=== PATIENT | female | born 1955 | race Caucasian/White ===

== ENCOUNTER 2016-12-05 16:08 | Emergency (ER) | payer OTHER ==
[2016-12-05 12:32] LABS: BASOPHILS 0.4 %; BASOPHILS ABSOLUTE 0.04 10/3/uL (0.0-0.16); EOSINOPHILS 1.2 %; EOSINOPHILS ABSOLUTE 0.11 10/3/uL (0.0-0.53); HEMATOCRIT 37.7 % (36.0-48.0); HEMOGLOBIN 12.7 g/dL (12.0-16.0); IMMATURE GRANULOCYTES 0.2 %; IMMATURE GRANULOCYTES ABSOLUTE 0.02 10/3/uL (0.0-0.11); LYMPHOCYTES 12.1 %; LYMPHOCYTES ABSOLUTE 1.11 10/3/uL (0.67-4.30); MANUAL DIFF NO %; MEAN CORPUS HGB CONC 33.7 g/dL (32.0-36.0); MEAN CORPUSCULAR HEMOGLOB 28.3 pg (26.0-34.0); MEAN CORPUSCULAR VOLUME 84.2 fL (80-100); MEAN PLATELET VOLUME 9.3 fL (9.2-13.0); MONOCYTES 3.4 %; MONOCYTES ABSOLUTE 0.31 10/3/uL (0.21-1.20); NEUTROPHILS 82.7 %; PLATELET COUNT 58 10/3/uL (150-400); RBC DISTRIBUTION WIDTH 13.7 % (12.0-16.0); RED CELL COUNT 4.48 10/6/uL (4.0-5.6); WHITE BLOOD CELLS 9.2 10/3/uL (4.5-10.5)
[2016-12-05 12:39] LABS: INTERNATIONAL NORMAL RATI 1.1 UNITS (-); PARTIAL THROMBO TIME 29.8 SEC (22.5-37.2); PROTIME (NOT ORD) 14.2 SEC (12.0-14.5)
[2016-12-05 12:50] LABS: CALCIUM, SERUM 9.4 MG/DL (8.5-10.4); CHEST PAIN PROFILE TAT 0 Hrs 22 Mins; CHLORIDE, SERUM 105 MMOL/L (96-112); CREATININE 0.72 MG/DL (0.55-1.02); GFR AFRICAN AMERICAN 103 ML/MIN (>=60); GFR NON AFRICAN AMERICAN 89 ML/MIN (>=60); POTASSIUM, SERUM 3.9 MMOL/L (3.5-5.3); SODIUM, SERUM 138 MMOL/L (135-148); TROPONIN I <0.02 NG/ML (<0.05)
[2016-12-05 12:52] LABS: BUN (BLOOD UREA NITROGEN) 10 MG/DL (6-23); CO2 (CARBON DIOXIDE) 24 MMOL/L (24-34); GLUCOSE, SERUM 124 MG/DL (60-99)
[2016-12-05 13:35] LABS: PLATELET ESTIMATE DEC (ADEQUATE)
[2016-12-05 13:36] LABS: RBC MORPHOLOGY NORM (NORMAL)
[~2016-12-05 16:08] MED LIST: CALTRA600D PO; CENTRUM PO; IBU-200200 MG PO; PERCOCET1 TA2 PO
[2016-12-06] MEDS ORDERED: B COMPLETE PO (15:44)
[2016-12-06] MEDS ORDERED: VITC500 PO (15:44)
[2016-12-06] MEDS ORDERED: FISH-EPA1000 MG PO (15:44)
== END 2016-12-05 17:03 | disposition home or self-care (01) ==
LOC: ER 16:08
PROVIDERS: Emergency Medicine
DX: R06.02 Shortness of breath (principal); I51.89 Other ill-defined heart diseases; Z85.038 Personal history of other malignant neoplasm of large intestine; Z88.5 Allergy status to narcotic agent; Z88.1 Allergy status to other antibiotic agents; Z79.899 Other long term (current) drug therapy
CPT/HCPCS: 71020; 80048; 83735; 84484; 85025; 85610; 85730; 93005; 99285

== ENCOUNTER 2016-12-06 14:53 | Inpatient (IN) | payer OTHER ==
--- NOTE | ~2016-12-06 | DS ---
Discharge Summary [facility] [address] [place]. [address] NAME: JESE ALEJO : 51 STATUS : DIS IN PAT#: [id number] AGE: 61 ADM/REG DATE : 12/06/16 MR#: [id number] REPORT SERV DATE: 12/10/16 DICTATED BY: CUATE IRWIN DATE: 12/09/16 REPORT STATUS : Draft TRANSCRIBED BY: MODL DATE: 12/09/16 ADMISSION DATE: 12/06/2016 DISCHARGE DATE: 12/09/2016 REASON FOR ADMISSION: Bilateral pulmonary emboli. A 61-year-old female with a history of colon cancer and Port-A-Cath who came in with progressive shortness of breath. DISCHARGE DIAGNOSES: 1. Bilateral pulmonary emboli with thrombus surrounding the Port-A-Cath extending down the superior vena cava into the right atrium. 2. History of colon cancer. 3. Probable pulmonary metastasis. HOSPITAL COURSE: The patient admitted for bilateral pulmonary emboli. 1. Bilateral pulmonary emboli. The patient was started on IV heparin drip. CT of the chest would show bilateral acute pulmonary emboli involving bilateral lower lobe and right upper lobe lobar pulmonary arteries and segmental arteries, also would show a 4.8 x 2.6 cm right atrial thrombus and thrombus extending into distending the SVC and surrounding Port-A-Cath catheter in the SVC. Thrombus also extended down into the lower right jugular vein and partial SVC obstruction and increased collateralization of flow through the mediastinum, worsening bilateral pulmonary metastases since June 2016. The patient also have an echocardiogram performed. She actually had one done outpatient which had showed a right atrial thrombus which led to her being instructed to come to the emergency room for admission. The echocardiogram would show a large mass in right atrium extending through the tricuspid valve consistent with thrombus. Normal left ventricular systolic function with estimated LVEF of 55% and mild right ventricular enlargement. The patient had consulted services from Vascular Surgery, Dr. English; Cardiovascular Thoracic Surgery; Cardiology, Dr. Salomon, and Pulmonary, Arik Rice. After much discussion amongst the various specialties, Dr. Salomon felt strongly that the patient needed a mechanical removal of the clot burden and called around to different facilities ultimately finding an accepting facility at [facility] where they will do a mechanical clot removal. It is important to note that it appears that the patient has metastasis of her cancer to bilateral lung bases, but that will not be addressed at this time as she needs urgent intervention for her multiple thrombi. Risks were discussed with the patient associated with transferring to the tertiary facility for treatment. She understands these risks and agrees for transfer to [facility]. DISCHARGE CONDITION: Stable. The patient will transfer to the [facility] via [employer] airplane. DISCHARGE MEDICATIONS: 1. Heparin drip. 2. Multivitamin. Discharge Summary [address] [address] NAME: JESE ALEJO : 51 STATUS : DIS IN PAT#: [id number] AGE: 61 ADM/REG DATE : 12/06/16 MR#: [id number] REPORT SERV DATE: 12/10/16 DICTATED BY: CUATE IRWIN DATE: 12/09/16 REPORT STATUS : Draft TRANSCRIBED BY: CLIFFORD DATE: 12/09/16 3. Caltrate 600 + D daily. 4. Vitamin C 1000 mg daily. 5. Fish oil 1000 mg p.o. daily. 6. Vitamin B complex one tablet daily. DISCHARGE PLAN: The patient is discharge to [facility] for urgent mechanical removal of clot. TDR/CLIFFORD Cuate Irwin APN / [id number] CC: Beck Bell MD Sachin V Phade, M.D. Mark Thel, M.D. Garrick B Spoon, PA-C Sylvia Krueger, M.D.
--- NOTE | ~2016-12-06 | CN ---
Consultation Report [facility] [address] [place]. [address] NAME: LUIZA ALEJO : 51 STATUS : DIS IN PAT#: [id number] AGE: 61 ADM/REG DATE : 12/06/16 MR#: [id number] REPORT SERV DATE: 12/09/16 DICTATED BY: RASHEL RAMON DATE: 12/09/16 REPORT STATUS : Draft TRANSCRIBED BY: CLIFFORD DATE: 12/09/16 DATE OF CONSULTATION: 12/09/2016 REQUESTING PHYSICIAN: Rahat Salomon M.D. CHIEF COMPLAINT: Dyspnea in a patient with bilateral pulmonary embolism. HISTORY OF PRESENT ILLNESS: Ms Luiza Alejo is a very pleasant 61-year-old white female with a past medical history significant for colon cancer, previously treated with resection and adjuvant chemotherapy, who presents to [facility] Emergency Room with complaints of worsening shortness of breath over the last one to two weeks. It should be noted that Ms Alejo has not been hospitalized recently and is usually in fairly good health given her comorbidity. Ms Alejo is not currently followed by a rv service technician. She does not usually require a supplemental oxygen. She is on no nebulized medications. She describes herself as a never smoker. Her does state that she has bouts of snoring in the evening. She describes her exercise tolerance previous to this recent illness as being excellent, being able to walk over 100 yards before experiencing any shortness of breath. Mrs Alejo was diagnosed with colon cancer approximately two years ago. She did undergo resection and had adjuvant chemotherapy under the care of Dr. Bee. She had subsequent scans, which raised the question of possible recurrence at the anastomosis site. She was seen by Dr. Chance. This did not demonstrate residual disease by her report. She has had scans in the past that demonstrated pulmonary nodules. More recently, she began to experience worsening shortness of breath. She was treated by her primary care physician for sinus and bronchitis-like symptoms. However, she had shortness of breath that persisted. More recently, soon after having her chemo port flush she, began to experience further worsening of this symptom that prompted her presentation to [facility]'s Emergency Room. Upon arrival, she was found to have systolic blood pressure of 154. She was afebrile. Pulse was 112. Room air sat was 90%. She eventually underwent a CT of the chest, which demonstrated bilateral acute pulmonary emboli, as well as a large right atrial thrombus extending into the SVC. Worsening bilateral pulmonary metastasis were appreciated as well. For the aforementioned reasons, she has been referred to the Pulmonary Service for further assessment. Currently, the patient is on 2 L of supplemental oxygen. She is very dyspneic with any exertion. She denies any hemoptysis or pleuritic pain. She has no cough. She is not producing any purulent sputum. She denies any wheezing in her chest. She denies recurrent pneumonias. She denies previous history of blood clots. The patient currently denies any murmurs, angina, or palpitations. She denies any paroxysmal nocturnal dyspnea or edema. Consultation Report [facility] [id number] [place]. [address] NAME: LUIZA ALEJO : 51 STATUS : DIS IN PAT#: [id number] AGE: 61 ADM/REG DATE : 12/06/16 MR#: [id number] REPORT SERV DATE: 12/09/16 DICTATED BY: RASHEL RAMON DATE: 12/09/16 REPORT STATUS : Draft TRANSCRIBED BY: CLIFFORD DATE: 12/09/16 PAST MEDICAL HISTORY: Colon cancer. PAST SURGICAL HISTORY: Colon resection x2. FAMILY HISTORY: The patient denies a family history of lung disease. She states that there is a history of "multiple cancers." SOCIAL HISTORY: The patient is with her currently at bedside. They have two children who are in good health. She previously worked in an office environment and denies any known exposures to dust, silica, or asbestos. TOBACCO/ALCOHOL: As previously mentioned, the patient describes herself as a never smoker. She denies any recent alcohol or illicit drug use. MEDICATIONS: 1. Vitamin C 500 mg. 2. B complex and folic acid. 3. Calcium 600 mg. 4. Multivitamin. 5. Bingen-3. ALLERGIES: THE PATIENT HAS KNOWN ALLERGY TO CODEINE AND TETRACYCLINE. REVIEW OF SYSTEMS: A complete review of systems was performed with pertinent positives and negatives contained within the body of the HPI. PHYSICAL EXAMINATION: VITAL SIGNS: Blood pressure is 98/61, heart rate is 101, T-max is 98.5, respiratory rate is 16, SpO2 is 97% on 2 L. GENERAL: The patient is a pleasant, well-nourished/well-developed female who is not currently exhibiting any signs of acute distress. SKIN: Skin with appropriate texture and turgor. No rashes, lesions, or ulcers. Nails are clear without cyanosis or clubbing. HEENT: Head: Skull is normocephalic/atraumatic. Facies symmetric. No masses or lesions. EYES: Sclera anicteric, conjunctiva pink without exudates. Extra ocular movements intact. Pupils are equal, round, reactive to light. EARS: Auricles and tragus without pain to palpation. Hearing is grossly intact. NOSE: Bilateral nasal patency. Sinuses without tenderness upon palpation. THROAT: Dentition. Lips, oral mucosa, tongue, palate, and pharynx pink and moist without lesions. Uvula rises equally on phonation. Tongue midline without deviation. NECK: Neck supple. Trachea midline. No cervical lymphadenopathy appreciated. THORAX/LUNGS: Port appreciated in left upper thorax. CARDIOVASCULAR: Regular rate and rhythm. No murmurs, rubs, or gallops. Anterior chest without thrills, heaves, or lifts. Consultation Report [address] [place]. [address] NAME: LUIZA ALEJO : 51 STATUS : DIS IN PAT#: [id number] AGE: 61 ADM/REG DATE : 12/06/16 MR#: [id number] REPORT SERV DATE: 12/09/16 DICTATED BY: RASHEL RAMON DATE: 12/09/16 REPORT STATUS : Draft TRANSCRIBED BY: CLIFFORD DATE: 12/09/16 ABDOMEN: Soft. Non-distended, non-tender. Active bowel sounds in all four quadrants. No hepatosplenomegaly noted. PERIPHERAL VASCULAR: No edema. No varicosities, stasis changes, open sores, ulcerations, or phlebitis. 2+ pulses in radial and dorsalis pedis. MUSCULOSKELETAL: Full AROM and PROM in all joints. No evidence of erythema, deformity, or crepitus. NEUROLOGIC: CN 2 through 12 grossly intact. Good muscle bulk and tone bilaterally. Strength 5/5 throughout. PSYCHIATRIC: Patient demonstrates good judgment and insight. Pt is A&O x 3. ACCESSORY DATA: Reveals a white blood cell count of 10,900, hemoglobin and hematocrit 11.2 and 33.8, and platelets are 62. There is an echocardiogram pending. IMPRESSION: 1. Bilateral pulmonary embolism. 2. Right atrial thrombosis with extension into the superior vena cava. 3. Likely bilateral pulmonary metastatic disease. PLAN: 1. The patient's hypercoagulable state is likely secondary to her metastatic disease and further complicated by an indwelling catheter. She is currently on a heparin drip. We did discuss the possibility of systemic tPA, as well as a catheter-directed approach. Given her significant clot burden, we agree with the plan for transferring her for a mechanical intervention to remove her substantial clot burden. The patient is aware of the inherent risks associated with transferring to a tertiary care facility and is willing to proceed at this time. 2. In regard to the patient's likely metastatic disease, we will not pursue biopsy at this time. The aforementioned impression and plan has been discussed with Dr. Wilson, who will follow further recommendations. We thank you for this consult and look forward to participating in the care of Luiza Alejo. LENO/CLIFFORD Rashel Ramon PA-C / [id number] CC: Consultation Report [address] [place]. [address] NAME: LUIZA ALEJO : 51 STATUS : DIS IN PAT#: [id number] AGE: 61 ADM/REG DATE : 12/06/16 MR#: [id number] REPORT SERV DATE: 12/09/16 DICTATED BY: RASHEL RAMON DATE: 12/09/16 REPORT STATUS : Draft TRANSCRIBED BY: JOSÉ MIGUELL DATE: 12/09/16 Peter Doll M.D. Jillian Hill MD
--- NOTE | ~2016-12-06 | PRECARD ---
H&P [facility] [address]. [address] NAME: LUIZA ALEJO : 51 STATUS : ADM IN [facility]#: [id number] AGE: 61 ADM/REG DATE : 12/06/16 MR#: [id number] REPORT SERV DATE: 12/08/16 DICTATED BY: RAMILA SALOMON DATE: 12/08/16 REPORT STATUS : Draft TRANSCRIBED BY: CLIFFORD DATE: 12/08/16 DATE OF ADMISSION: 12/06/2016 HISTORY OF PRESENT ILLNESS: Ms. Luiza Alejo is a 61-year-old woman referred by the hospitalist and Dr. Seth because of thrombus noted on a central venous catheter. The patient has a history of colon cancer that was resected, it apparently had spread to the lymph nodes, but not to the liver. She had a subsequent mass in the colon, she had repeat surgery by Dr. Chance here at [facility], she reports that second colon operation did not demonstrate malignancy. She developed shortness of breath. A chest CT demonstrated bilateral acute pulmonary emboli involving the bilateral lower lobes, with right lower lobe pulmonary artery and segmental arteries. She also had a 4.8 x 2.6 cm right atrial low density mass, likely thrombus, suspected thrombus surrounding the Port-A-Cath in the SVC. The chest CT suggested continued bilateral pulmonary metastases. However, she did have a recent PET-CT that did not demonstrate avidity. She reportedly also had a brain MRI that did not show metastases. She has been on heparin since admission. Her dyspnea has improved, she has no chest discomfort. PAST MEDICAL HISTORY: Colon cancer, two different operations. SOCIAL HISTORY: No alcohol or tobacco. She is , lives in [place], no longer working. MEDICINES: Vitamin C, vitamin D, multivitamin, heparin IV. REVIEW OF SYSTEMS: Complete review of systems obtained, pertinent negative and unremarkable except as noted above and below. All systems addressed. PHYSICAL EXAMINATION: VITAL SIGNS: Pressure about 115/60, heart rate about 60. GENERAL: Comfortable, in no acute distress. HEENT: No xanthelasma; lips without cyanosis LUNGS: Clear to auscultation, no wheezes, rales or rhonchi; good breath sounds. COR: No JVD or hepatojugular reflux, no murmurs, rubs or gallops, impulse mid clavicular line without carotid or abdominal bruits; normal S1 and S2. ABDOMEN: Bowel sounds positive, normal activity, without tenderness, masses or hepatosplenomegaly. EXTREMITIES: No edema, cyanosis. SKIN: Normal turgor. H&P [address] [place]. [address] NAME: LUIZA ALEJO : 51 STATUS : ADM IN PAT#: [id number] AGE: 61 ADM/REG DATE : 12/06/16 MR#: [id number] REPORT SERV DATE: 12/08/16 DICTATED BY: RAMILA SALOMON DATE: 12/08/16 REPORT STATUS : Draft TRANSCRIBED BY: CLIFFORD DATE: 12/08/16 Ms: Normal muscle strength, without kyphosis/scoliosis. NEURO/PSYCH: Alert and oriented times 4, no apparent anxiety or depression. DATA: BUN is 6, creatinine 0.6, troponin less than 0.02. Platelets 60,000. EKG sinus tachycardia. ASSESSMENT: Ms. Alejo is a 61-year-old woman with history of colon cancer. She has a Port-A-Cath, which has been in there for a few years. Her chest CT demonstrates clot on this Port-A-Cath, which is extending into her right atrium. She also has bilateral acute pulmonary emboli. She is on heparin IV. She had a platelet count of 60,000. I would continue with the current medical regimen. Thoracic Surgery and Vascular Surgery have already been consulted. I will look into the possibility of mechanical extraction of this thrombus via percutaneous approach. YUAN/CLIFFORD Ramila Salomon M.D. / [id number] CC: Beck Bell MD
--- NOTE | ~2016-12-06 | CN ---
Consultation Report [facility] [address] [place]. [address] NAME: JESE ALEJO : 51 STATUS : ADM IN PAT#: [id number] AGE: 61 ADM/REG DATE : 12/06/16 MR#: [id number] REPORT SERV DATE: 12/07/16 DICTATED BY: TERELL ENGLISH DATE: 12/07/16 REPORT STATUS : Draft TRANSCRIBED BY: MODAlissa DATE: 12/07/16 CONSULT NOTE DATE OF CONSULTATION: 12/06/2016 REASON FOR CONSULTATION: Evaluation for SVC thrombus as well as pulmonary emboli. BRIEF HISTORY: The patient is a 61-year-old female with a past medical history significant for colon cancer that necessitated resection by Dr. Bragg in [place]. She recently had a revision of her cancer surgery by Dr. Chance. She has had a [id number]-week history of shortness of breath. She went to see Dr. Jagdeep Hill about this. Initially, it was thought that she may have bronchitis. When her symptoms persisted, she had a cardiac workup, which included an echocardiogram. The echocardiogram demonstrated thrombus with her heart, so she was sent to the hospital for further evaluation and treatment. She ultimately was evaluated in the emergency department. She had a CT scan ordered as an outpatient. The CT scan showed a pulmonary embolus, so now she is being admitted for anticoagulation. Additionally, she was noted to have an SVC thrombus that extended into the right atrium. I was consulted for possible surgical percutaneous thrombectomy. The patient denies persistent malignancy but there is note that she has had an elevated CEA. She has reportedly had a PET-CT scan performed. This is not available to me. The patient states that she has had some chronic lung masses that do not light up on PET-CT. She has had a MRI of her brain that was reportedly unremarkable. The patient complains of facial swelling that she says has actually decreased. Her shortness of breath has worsened. She is unable to walk or perform many activities. PAST MEDICAL HISTORY: Colon cancer. SURGICAL HISTORY: Includes 2 colon cancer surgeries. SOCIAL HISTORY: She is . She lives in [place] but grew up in [place]. She has no history of tobacco, alcohol, or drug use. FAMILY HISTORY: Significant for cancers. Medications and allergies are documented on the chart and were reviewed. REVIEW OF SYSTEMS: A complete review of systems was performed and is negative with the exception of the aforementioned findings. PHYSICAL EXAMINATION: VITAL SIGNS: Documented on the chart and were reviewed. GENERAL: The patient is awake, alert, and oriented, in no apparent distress. HEAD AND NECK: Benign without any carotid bruits. Consultation Report [facility] [address] [address] NAME: JESE ALEJO : 51 STATUS : ADM IN PAT#: [id number] AGE: 61 ADM/REG DATE : 12/06/16 MR#: [id number] REPORT SERV DATE: 12/07/16 DICTATED BY: TERELL ENGLISH DATE: 12/07/16 REPORT STATUS : Draft TRANSCRIBED BY: CLIFFORD DATE: 12/07/16 HEART: Regular rate and rhythm. LUNGS: Clear but she has slightly labored breathing. She is on 3 L of oxygen. ABDOMEN: Soft, nontender, nondistended, with a nonaneurysmal aorta. EXTREMITIES: She has a normal compliment of upper extremity pulses without any significant edema or ischemic ulcerations. She has palpable femoral, popliteal, and pedal pulses. She has no significant edema or ischemic ulcerations. NEUROLOGICAL: Grossly nonfocal. MUSCULOSKELETAL: Otherwise benign. LABORATORY DATA: Her laboratory investigations are fairly unremarkable. Her CT scan was reviewed. She has had a fairly sizable bilateral pulmonary emboli. She also has thrombus that extends from her innominate veins into her SVC. It in fact extends into the right atrium. There is a Port-A-Cath in place that looks like it is in her left subclavian vein. ASSESSMENT AND PLAN: It looks like this lady has had pulmonary emboli and has a significant DVT. I talked to her about the risks, benefits, and alternatives of anticoagulation, IV thrombolytics, catheter-directed thrombolysis, and percutaneous thrombectomy. It is not clear to me what the right answer is for this lady, as she carries a significant PE risk regardless. This could be a significant PE. She is going to think about her options. After our discussion, she later had a discussion with Dr. Khan. We talked about our options and called Dr. Kamara and asked that he obtain a CT surgery evaluation. For right now, she is going to continue the anticoagulation alone. [employer]/MODL Terell English M.D. / [id number] CC: MD JAGDEEP Chand
--- NOTE | ~2016-12-06 | HP ---
History And Physical [place] [id number] [facility] [place]. [address] NAME: JESE ALEJO : 51 STATUS : ADM [facility]#: [id number] AGE: 61 ADM/REG DATE : 12/06/16 MR#: [id number] REPORT SERV DATE: 12/06/16 DICTATED BY: PORFIRIO MEJIA DATE: 12/06/16 REPORT STATUS : Draft TRANSCRIBED BY: MODL DATE: 12/06/16 DATE OF ADMISSION: 12/06/2016 REASON FOR ADMISSION: Pulmonary emboli bilaterally. HISTORY: This is a 61-year-old white female with extensive history of colon cancer. She has had colonoscopies done since she was age 43 in transverse colon, developed obstructing mass back in 2013, underwent resection by Dr. Chance. She has had a persistently elevated CEA. She had positive nodes and underwent chemotherapy from Dr. Norma Bee in [place]. She has had no evidence of recurrence. There was a CT scan of the abdomen, did show possible recurrence at the anastomosis site, though exploratory laparotomy by Dr. Chance in 2015 revealed no evidence of standing tumor. She has a PET scan done about two months ago, nothing was exposed that was FDG avid; however, she does have bilateral lower lobe pulmonary nodules that have not changed in size over an observable period of time. Dr. Norma Bee has been observing over time. She came to the emergency room last night with an echocardiogram showing an abnormality that was unable to be assessed completely. She was sent home and came back today with increasing weakness and shortness of breath. Chest x-ray done last night showed bilateral pulmonary nodules, possibly metastases, but have been present on the CT images recently from PET CT from 06/24/2016. Her troponin was less than 0.02. She was having some chest discomfort, shortness of breath, and dyspnea on exertion, but this has been going on for the last two weeks. PAST MEDICAL HISTORY: She had surgery, 10/20/2015, by Dr. Chance. He lysed multiple adhesions and then found no evidence of recurrence, though she had elevated CEA and a T3 N2 M0 mucinous adenocarcinoma. Pathology report was not present at the time of dictation of discharge summary. She had remote history of an ovarian cyst, had a breast biopsy in the past, although no other cancer. SOCIAL HISTORY: She is . Lives with her . She does not smoke cigarettes or take any alcohol. She grew up in [place], now lives in [place], [place], the last 30 years, as her was transferred there with [facility]. She takes an occasional mixed drink. She attends [employer] in [place], but has been a member of other denominations in the past. FAMILY HISTORY: Pancreatic cancer and diabetes run in the family. REVIEW OF SYSTEMS: She has had no nausea, vomiting, or diarrhea. No fever, chills, or night sweats. She has had no weight loss. No unilateral weakness. melena, hematemesis, fits, seizures, convulsions, nausea, vomiting, diarrhea, or constipation. No hemoptysis, hematuria, flank pain, headache, eye pain, double vision, nausea, vomiting, or diarrhea. The remainder of the review of systems is negative. History And Physical [address] [address] NAME: JESE ALEJO : 51 STATUS : ADM [facility]#: [id number] AGE: 61 ADM/REG DATE : 12/06/16 MR#: [id number] REPORT SERV DATE: 12/06/16 DICTATED BY: PORFIRIO MEJIA DATE: 12/06/16 REPORT STATUS : Draft TRANSCRIBED BY: CLIFFORD DATE: 12/06/16 She has had tonsillectomy and the ovarian cyst in the past as well. PHYSICAL EXAMINATION: GENERAL: White female, in no acute distress. VITAL SIGNS: Blood pressure was 140/70, heart rate 100, respiratory rate 18, afebrile. HEENT: EOMI. Sclerae clear. Conjunctivae pink. NECK: No bruit and without any JVD. CHEST: Clear to A and P. HEART: Hyperdynamic. Regular S1, S2 without murmur, gallop, or click. ABDOMEN: Soft, nontender. Bowel sounds positive. Protuberant. Surgical scars well healed. EXTREMITIES: Have no edema. Distal pulses are intact at the dorsalis pedis and posterior tibial. NEUROLOGIC: She withdraws to plantar stimulation. 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 Coordination intact. She has no tremor. She is symmetric and equal neurologically. LYMPHATICS: There is no adenopathy palpable in the cervical or axillary area. BREASTS: Grossly without mass. SKIN: Without rash, ecchymosis, or bruising. LABORATORY DATA: CTA of the chest was done that showed bilateral acute pulmonary emboli involving the bilateral lower lobes and right upper lobe pulmonary artery segmental arteries. There was a 4.8 x 2.6 cm right atrial thrombosis, and thrombus extended into the descending superior vena cava surrounded by Port-A-Cath in the superior vena cava. Thrombus also extended into the right jugular vein. There is at least partial superior vena cava occlusion with increased collateral flow through the mediastinum. She had worsened bilateral pulmonary metastasis since 06/2016. CT scan of the pelvis showed innumerable metastatic deposits in the lung bases, collapsed gallbladder, but no GI obstruction. The hemoglobin 12.9, hematocrit 38.3, platelets were 66,000, and white count was [address]. The INR was 1.2. Sodium 140, potassium 3.9, creatinine 0.66, BUN 9, glucose 108, magnesium 2.2. Troponin less than 0.02. The portable chest x-ray showed pulmonary nodules consistent with metastatic disease. ASSESSMENT: 1. Bilateral pulmonary embolism. 2. Left atrial thrombus. 3. History of colon cancer. 4. Possible pulmonary metastasis. 5. Multiple clots in and around the Port-A-Cath as well. EKG shows sinus tachycardia, left axis deviation, otherwise unremarkable EKG. MEDICATION LIST: The patient is on no medications with the exception of occasional Metamucil. ALLERGIES: CODEINE CAUSES VOMITING. History And Physical [address] [address] NAME: JESE ALEJO : 51 STATUS : ADM [facility]#: [id number] AGE: 61 ADM/REG DATE : 12/06/16 MR#: [id number] REPORT SERV DATE: 12/06/16 DICTATED BY: PORFIRIO MEJIA DATE: 12/06/16 REPORT STATUS : Draft TRANSCRIBED BY: MODL DATE: 12/06/16 PLAN: The patient will be heparinized and has been in the emergency room. Consult Dr. Chance, as he is familiar with her; however, we will hold off on oncology consultation because she sees Dr. Norma Bee in [place]. Dr. English was consulted earlier by Dr. Mcgee from the emergency room and will see her regarding possible clot removal technique. DB/MODL Porfirio Mejia M.D. / [id number] CC: Beck Bell MD Sylvia Krueger, M.D. Sachin V Phade, M.D. Richard Hunter Jennings III, M.D.
[2016-12-06 13:22] LABS: BASOPHILS 0.3 %; BASOPHILS ABSOLUTE 0.03 10/3/uL (0.0-0.16); EOSINOPHILS 0.3 %; EOSINOPHILS ABSOLUTE 0.04 10/3/uL (0.0-0.53); HEMATOCRIT 38.3 % (36.0-48.0); HEMOGLOBIN 12.9 g/dL (12.0-16.0); IMMATURE GRANULOCYTES 0.3 %; IMMATURE GRANULOCYTES ABSOLUTE 0.03 10/3/uL (0.0-0.11); LYMPHOCYTES 11.7 %; LYMPHOCYTES ABSOLUTE 1.37 10/3/uL (0.67-4.30); MEAN CORPUS HGB CONC 33.7 g/dL (32.0-36.0); MEAN CORPUSCULAR HEMOGLOB 28.2 pg (26.0-34.0); MEAN CORPUSCULAR VOLUME 83.6 fL (80-100); MEAN PLATELET VOLUME 9.5 fL (9.2-13.0); MONOCYTES 2.9 %; MONOCYTES ABSOLUTE 0.34 10/3/uL (0.21-1.20); NEUTROPHILS 84.5 %; NEUTROPHILS ABSOLUTE 9.85 10/3/uL (2.02-8.40); PLATELET COUNT 66 10/3/uL (150-400); RBC DISTRIBUTION WIDTH 13.7 % (12.0-16.0); RED CELL COUNT 4.58 10/6/uL (4.0-5.6); WHITE BLOOD CELLS 11.7 10/3/uL (4.5-10.5)
[2016-12-06 13:23] LABS: MANUAL DIFF NO %
[2016-12-06 13:30] LABS: INTERNATIONAL NORMAL RATI 1.2 UNITS (-); PARTIAL THROMBO TIME 31.5 SEC (22.5-37.2); PROTIME (NOT ORD) 14.6 SEC (12.0-14.5)
[2016-12-06 13:40] LABS: BUN (BLOOD UREA NITROGEN) 9 MG/DL (6-23); CALCIUM, SERUM 9.2 MG/DL (8.5-10.4); CHEST PAIN PROFILE TAT 0 Hrs 24 Mins; CHLORIDE, SERUM 105 MMOL/L (96-112); CO2 (CARBON DIOXIDE) 24 MMOL/L (24-34); CREATININE 0.66 MG/DL (0.55-1.02); GFR AFRICAN AMERICAN 109 ML/MIN (>=60); GFR NON AFRICAN AMERICAN 94 ML/MIN (>=60); GLUCOSE, SERUM 108 MG/DL (60-99); POTASSIUM, SERUM 3.9 MMOL/L (3.5-5.3); SODIUM, SERUM 140 MMOL/L (135-148); TROPONIN I <0.02 NG/ML (<0.05)
[2016-12-06 13:48] LABS: PLATELET ESTIMATE DEC (ADEQUATE); RBC MORPHOLOGY NORM (NORMAL)
[2016-12-06] MEDS ORDERED: VITC500 PO (15:44)
[2016-12-06] MEDS ORDERED: B COMPLETE PO (15:44)
[2016-12-06] MEDS ORDERED: FISH-EPA1000 MG PO (15:44)
[2016-12-08 05:52] LABS: BASOPHILS 0.4 %; BASOPHILS ABSOLUTE 0.03 10/3/uL (0.0-0.16); EOSINOPHILS 1.6 %; EOSINOPHILS ABSOLUTE 0.14 10/3/uL (0.0-0.53); HEMOGLOBIN 11.7 g/dL (12.0-16.0); IMMATURE GRANULOCYTES 0.2 %; IMMATURE GRANULOCYTES ABSOLUTE 0.02 10/3/uL (0.0-0.11); LYMPHOCYTES 19.2 %; LYMPHOCYTES ABSOLUTE 1.64 10/3/uL (0.67-4.30); MANUAL DIFF NO %; MEAN CORPUS HGB CONC 33.4 g/dL (32.0-36.0); MEAN CORPUSCULAR HEMOGLOB 28.1 pg (26.0-34.0); MEAN CORPUSCULAR VOLUME 83.9 fL (80-100); MEAN PLATELET VOLUME 8.6 fL (9.2-13.0); MONOCYTES 4.2 %; MONOCYTES ABSOLUTE 0.36 10/3/uL (0.21-1.20); NEUTROPHILS 74.4 %; NEUTROPHILS ABSOLUTE 6.37 10/3/uL (2.02-8.40); PLATELET COUNT 60 10/3/uL (150-400); RBC DISTRIBUTION WIDTH 13.8 % (12.0-16.0); RED CELL COUNT 4.17 10/6/uL (4.0-5.6); WHITE BLOOD CELLS 8.6 10/3/uL (4.5-10.5)
[2016-12-08 05:56] LABS: PARTIAL THROMBO TIME 63.3 SEC (22.5-37.2)
[2016-12-08 05:58] LABS: BUN (BLOOD UREA NITROGEN) 6 MG/DL (6-23); CALCIUM, SERUM 8.7 MG/DL (8.5-10.4); CHLORIDE, SERUM 105 MMOL/L (96-112); CO2 (CARBON DIOXIDE) 25 MMOL/L (24-34); CREATININE 0.62 MG/DL (0.55-1.02); GFR AFRICAN AMERICAN 111 ML/MIN (>=60); GFR NON AFRICAN AMERICAN 96 ML/MIN (>=60); GLUCOSE, SERUM 126 MG/DL (60-99); POTASSIUM, SERUM 3.5 MMOL/L (3.5-5.3); SODIUM, SERUM 140 MMOL/L (135-148)
[2016-12-08 07:38] LABS: PLATELET ESTIMATE DEC (ADEQUATE); POLYCHROMASIA 1+ (2-5/OIF) (0-1/OIF)
[2016-12-08 07:39] LABS: TEARDROP SHAPED RBCS OCC (0-2/OIF)
[2016-12-09 05:48] LABS: BASOPHILS 0.3 %; BASOPHILS ABSOLUTE 0.03 10/3/uL (0.0-0.16); EOSINOPHILS 1.6 %; EOSINOPHILS ABSOLUTE 0.17 10/3/uL (0.0-0.53); HEMATOCRIT 33.8 % (36.0-48.0); HEMOGLOBIN 11.2 g/dL (12.0-16.0); IMMATURE GRANULOCYTES 0.2 %; IMMATURE GRANULOCYTES ABSOLUTE 0.02 10/3/uL (0.0-0.11); LYMPHOCYTES 11.5 %; LYMPHOCYTES ABSOLUTE 1.25 10/3/uL (0.67-4.30); MEAN CORPUS HGB CONC 33.1 g/dL (32.0-36.0); MEAN CORPUSCULAR HEMOGLOB 27.8 pg (26.0-34.0); MEAN CORPUSCULAR VOLUME 83.9 fL (80-100); MEAN PLATELET VOLUME 9.6 fL (9.2-13.0); MONOCYTES ABSOLUTE 0.54 10/3/uL (0.21-1.20); NEUTROPHILS 81.4 %; NEUTROPHILS ABSOLUTE 8.86 10/3/uL (2.02-8.40); PLATELET COUNT 62 10/3/uL (150-400); RBC DISTRIBUTION WIDTH 14.1 % (12.0-16.0); RED CELL COUNT 4.03 10/6/uL (4.0-5.6); WHITE BLOOD CELLS 10.9 10/3/uL (4.5-10.5)
[2016-12-09 05:53] LABS: MANUAL DIFF NO %
[2016-12-09 05:58] LABS: BUN (BLOOD UREA NITROGEN) 8 MG/DL (6-23); CALCIUM, SERUM 8.6 MG/DL (8.5-10.4); CHLORIDE, SERUM 103 MMOL/L (96-112); CO2 (CARBON DIOXIDE) 23 MMOL/L (24-34); CREATININE 0.59 MG/DL (0.55-1.02); GFR AFRICAN AMERICAN 113 ML/MIN (>=60); GFR NON AFRICAN AMERICAN 98 ML/MIN (>=60); GLUCOSE, SERUM 120 MG/DL (60-99); POTASSIUM, SERUM 3.6 MMOL/L (3.5-5.3); SODIUM, SERUM 137 MMOL/L (135-148)
[2016-12-09 06:53] LABS: GIANT PLATELET OCC; PLATELET ESTIMATE DEC (ADEQUATE)
== END 2016-12-09 15:32 | disposition short-term general hospital (02) | DRG 175 ==
LOC: ER 14:53 → 5NO 18:54
PROVIDERS: Emergency Medicine; Internal Medicine; Nurse Practitioner Gerontology
DX: I26.99 Other pulmonary embolism without acute cor pulmonale (principal); D65 Disseminated intravascular coagulation [defibrination syndrome]; C78.02 Secondary malignant neoplasm of left lung; C78.01 Secondary malignant neoplasm of right lung; I82.210 Acute embolism and thrombosis of superior vena cava; I51.3 Intracardiac thrombosis, not elsewhere classified; Z85.038 Personal history of other malignant neoplasm of large intestine; K80.80 Other cholelithiasis without obstruction; Z88.5 Allergy status to narcotic agent; Z88.1 Allergy status to other antibiotic agents; Z79.899 Other long term (current) drug therapy
CPT/HCPCS: 71010; 71020; 71275; 74178; 80048; 83735; 84484; 85025; 85610; 85730; 93005; 93306; 96374; 99285; A9270-GY; Q9967